=== PATIENT | male | born 1980 | race Caucasian/White ===

== ENCOUNTER 2019-01-14 08:38 | Emergency (ER) | payer MEDICAID ==
--- NOTE | 2019-01-14 09:16 | EDPHY ---
H & P Time Seen by Provider: 01/14/19 09:12 HPI/ROS: CHIEF COMPLAINT: Hematuria HISTORY OF PRESENT ILLNESS: The patient is a 38-year-old male who presents to the emergency department with blood from his penis. The patient states that last evening he experimented with a cock ring. He attempted to urinate while the cock ring was in place. Jeferson blood came out of his meatus. He had no pain. He subsequently removed the cock ring was able to urinate. He had multiple episodes of bloody urine last evening. This morning he was able to urinate without any blood. Subsequently, the blood started to drain from his meatus when he was not urinating. He still has no pain. No flank discomfort. No nausea vomiting. No abdominal pain. No fevers or chills. No previous surgeries. The patient is not on blood thinners. The patient does not take antiplatelet agents. REVIEW OF SYSTEMS: 10 systems were reveiwed and are negative with the exception of the elements mentioned in the history of present illness. Past Medical/Surgical History: Denies Past surgical history: Noncontributory Social history: Patient does not smoke Smoking Status: Current some day smoker Physical Exam: Vitals noted GENERAL: No acute distress, alert. HEENT: Eyes normal to inspection RESPIRATORY: Clear to auscultation bilaterally, no rales, rhonchi or wheezing. CVS: Regular rate and rhythm, no rubs, murmurs, or gallops. ABDOMEN: Soft, nontender, nondistended, no organomegaly. BACK: Normal to inspection, no CVA tenderness. : Patient has some slight dried blood at the meatus. There is no penile swelling. No penile tenderness to palpation. Normal testicular exam. SKIN: Normal color, no rash, warm, dry. No pallor. EXTREMITIES: Normal appearing. NEURO/PSYCH: Alert and oriented, normal mood and affect Constitutional: Initial Vital Signs Temperature (C) 36.6 C 01/14/19 08:50 Heart Rate 79 01/14/19 08:50 Respiratory Rate 14 01/14/19 08:50 Blood Pressure 123/82 H 01/14/19 08:50 O2 Sat (%) 95 01/14/19 08:50 O2 Delivery Mode Room Air Allergies/Adverse Reactions: No Known Allergies Allergy (Unverified 01/14/19 08:49) Home Medications: Medication Instructions Recorded Cephalexin [Keflex (*)] 500 mg PO QID #12 cap 01/14/19 traMADol 01/14/19 Medical Decision Making ED Course/Re-evaluation: In the emergency department I discussed possible etiologies with the patient. I answered all his questions. I discussed the case with on-call Urology. I discussed case with Dr. Molina from Urology. At this time he did not recommend imaging. He recommended patient be started on antibiotics and follow up with him in his office. I discussed the plan with the patient. I gave him warnings prior to leaving. He will return to the emergency department if he has increasing pain, worsening blood from his meatus, difficulty with urination, fever, chills or any other concerns. Differential Diagnosis: My differential includes but is not limited to the urethral injury, dissection, urinary tract infection, pyelonephritis, prostatitis, STD Departure - Departure Disposition: Home, Routine, Self-Care Clinical Impression: Hematuria Qualifiers: Hematuria type: gross Qualified Code(s): R31.0 - Gross hematuria Condition: Good Instructions: Hematuria (ED) Additional Instructions: Return with increasing blood from your penis, increasing pain, fever, inability to urinate or any other concerns. Referrals: NONE *PRIMARY CARE P,. [Primary Care Provider] - As per Instructions Clyde Molina MD [Medical Doctor] - 2-3 days without fail Prescriptions: Cephalexin [Keflex (*)] 500 mg PO QID #12 cap
[2019-01-14 10:11] VITALS: BP 122/81
== END 2019-01-14 09:58 | disposition home or self-care (01) ==
LOC: CED 08:38
DX: R31.0 Gross hematuria (principal)
CPT/HCPCS: 99283-ER